=== PATIENT | female | born 1990 | race Caucasian/White ===

== ENCOUNTER 2017-04-12 19:44 | Emergency (ER) | payer OTHER ==
[~2017-04-12 19:44] MED LIST: BACT800T5 PO; LORA-392 PO; NAPR500 PO
--- NOTE | 2017-04-12 20:00 | PD ---
HPI Chief Complaint: VOL Time Seen by Provider: 19:58 Travel History International Travel<30 days: No Contact w/Intl Traveler<30days: No Traveled to known affect area: No History of Present Illness HPI 26-year-old female with history of bipolar disorder and anxiety presents to emergency department from [facility]. Patient went there requesting help with her anxiety. She denies suicidal or homicidal ideations. While there, the patient took a positive test. This apparently is out of [facility]'s scope of medical practice to handle so she was sent here. Patient states that she has anxiety. She would like to restart it on psychiatric meds to control her anxiety. Patient was seen and evaluated in the emergency department recently and prescribed 12 Ativan tablets, she is out of these. She is requesting refill. She has no other symptoms to report. PFSH Past Medical History Bipolar Disorder: Yes Anxiety: Yes Diminished Hearing: No Schizophrenia: Yes Past Surgical History Tonsillectomy: Yes Social History Alcohol Use: No Tobacco Use: Yes (04/09 ppd) Substance Use: No Allergies-Medications (Allergen,Severity, Reaction): Coded Allergies: No Known Allergies (Verified Adverse Reaction, Unknown, 03/21/17) Reported Meds & Prescriptions Reported Meds & Active Scripts Active Review of Systems Except as stated in HPI: all other systems reviewed are Neg Physical Exam Narrative GENERAL: Well-nourished female patient, in no acute distress. SKIN: Focused skin assessment warm/dry. HEAD: Atraumatic. Normocephalic. EYES: Pupils equal and round. No scleral icterus. No injection or drainage. ENT: No nasal bleeding or discharge. Mucous membranes pink and moist. NECK: Trachea midline. No JVD. CARDIOVASCULAR: Tachycardic rate and rhythm. No murmur appreciated. RESPIRATORY: No accessory muscle use. Clear to auscultation. Breath sounds equal bilaterally. GASTROINTESTINAL: Abdomen soft, non-tender, nondistended. Hepatic and splenic margins not palpable. MUSCULOSKELETAL: No obvious deformities. No clubbing. No cyanosis. No edema. NEUROLOGICAL: Awake and alert. No obvious cranial nerve deficits. Motor grossly within normal limits. Normal speech. Data Data Last Documented VS Vital Signs Date Time Temp Pulse Resp B/P (MAP) Pulse Ox O2 Delivery O2 Flow Rate FiO2 04/12/17 20:03 97.6 101 18 125/59 (81) 97 Orders Orders Ed Discharge Order (04/12/17 20:04) MDM Medical Decision Making Medical Screen Exam Complete: Yes Emergency Medical Condition: Yes Medical Record Reviewed: Yes Differential Diagnosis Medication refill versus mood disorder versus anxiety versus personality disorder Narrative Course 26-year-old female presents to emergency department requesting medication refill for her anxiety and to be started on antipsychotic medication for her bipolar. Patient denies suicidal or homicidal ideations. He states that [facility] told her we could help person she is . I reviewed with the patient that we are [facility] act receiving facility and if she does not want to harm herself or anybody else, she does not meet inpatient criteria and we will not be starting her on any antipsychotics because he will not be following up with her. She is provided information for [facility] and is advised to go there between walking hours tomorrow to establish care. She verbalizes understanding. She'll be discharged at this time. Diagnosis Primary Impression: Medication refill Additional Impression: Bipolar 1 disorder Referrals: [facility] Patient Instructions: Medicine Refill (ED) Additional Instructions: [facility] accepts walk-ins tomorrow 7 AM to 7 PM Please follow-up with them. They can assess and determine if you need additional psychiatric medication and follow you there Return immediately to emergency department with any acute worsening symptoms Med/Other Pt SpecificInfo: No Change to Meds Disposition: 01 DISCHARGE HOME Condition: Stable Jenny New Apr 12, 2017 20:00
[2017-04-12 20:03] VITALS: BP 125/59; PULSE 101; RESP 18; TEMP 97.6; O2SAT 97
== END 2017-04-12 20:24 | disposition home or self-care (01) ==
LOC: NEPD 19:44
DX: Z76.0 Encounter for issue of repeat prescription (principal); F31.9 Bipolar disorder, unspecified; F41.9 Anxiety disorder, unspecified; F20.9 Schizophrenia, unspecified; F17.200 Nicotine dependence, unspecified, uncomplicated
CPT/HCPCS: 99283

== ENCOUNTER 2017-04-13 19:58 | Inpatient (IN) | payer OTHER ==
[~2017-04-13] VITALS: Ht 157.5 cm; Wt 90.3 kg
--- NOTE | 2017-04-13 20:37 | PD ---
HPI Chief Complaint: BA Time Seen by Provider: 20:17 Travel History International Travel<30 days: No Contact w/Intl Traveler<30days: No Traveled to known affect area: No History of Present Illness HPI 26-year-old white female presents to emergency department under [place] act by PD. The patient initially had presented to [facility] voluntarily but verbalized suicidal ideation. PD were summoned. She was placed under [place] act. The patient is religiously preoccupied. She has a history of substance abuse, schizophrenia, bipolar and anxiety. The patient was seen one week ago here at [place] for anxiety. She was placed on a short course of Ativan. The patient followed up with [facility] last week and was notified she was . She was referred to the ER but she did not meet Nar[place] act criteria. The patient was to follow up as an outpatient but she did not until today and she appeared to be acutely delusional and suicidal. The patient here denies any homicidal ideation. She does admit to suicidal ideation. She denies any toxic ingestions. Patient did not appear to be aware that she was . She states that her last menstrual was 2 months ago. Patient is concerned that she may have hepatitis because she used IV drugs up until 2 months ago. Patient states that she is addicted to "ice". She snorts it. She stopped using IV ice 2 months ago. PFSH Past Medical History Narrative Medical Substance abuse, schizophrenia, bipolar, anxiety Bipolar Disorder: Yes Anxiety: Yes Diminished Hearing: No Schizophrenia: Yes Tetanus Vaccination: Unknown ?: LMP: 2 months ago : 5 Para: 4 Past Surgical History Surgical History: No Previous Surgery Tonsillectomy: Yes Social History Alcohol Use: Yes Tobacco Use: Yes (04/09 ppd) Substance Use: Yes Allergies-Medications (Allergen,Severity, Reaction): Coded Allergies: No Known Allergies (Verified Adverse Reaction, Unknown, 04/13/17) Reported Meds & Prescriptions Reported Meds & Active Scripts Active Review of Systems General / Constitutional: No: Fever Eyes: No: Visual changes HENT: No: Headaches Cardiovascular: No: Chest Pain or Discomfort Respiratory: No: Shortness of Breath Gastrointestinal: No: Abdominal Pain Genitourinary: No: Dysuria Musculoskeletal: No: Pain Skin: No Rash Neurologic: No: Weakness Psychiatric: Positive: Anxiety, Suicidal Ideations, Disorder of Thought, Mood Disorder, Substance Abuse, No: Depression, Homicidal Ideation Endocrine: No: Polydipsia Hematologic/Lymphatic: No: Easy Bruising Physical Exam Narrative GENERAL: Well-nourished, well-developed patient. SKIN: Warm and dry. HEAD: Normocephalic and atraumatic. EYES: No scleral icterus. No injection or drainage. ENT: No nasal drainage noted. Mucous membranes pink. Airway patent. NECK: Supple, trachea midline. Moves head freely without obvious discomfort. CARDIOVASCULAR: Regular rate and rhythm without murmurs, gallops, or rubs. RESPIRATORY: Breath sounds equal bilaterally. No accessory muscle use. GASTROINTESTINAL: Abdomen soft, non-tender, nondistended. EXTREMITIES: No cyanosis or edema. BACK: Nontender without obvious deformity. No CVA tenderness. NEURO: Patient is alert and oriented. no sensorimotor deficits. Nonfocal. Normal speech. PSYCH: The patient is acutely delusional. She is having auditory hallucinations. She states that she is hearing voices persecution and advising her to commit suicide. Data Data Last Documented VS Vital Signs Date Time Temp Pulse Resp B/P (MAP) Pulse Ox O2 Delivery O2 Flow Rate FiO2 04/13/17 20:40 98.1 65 18 130/72 (91) 99 Orders Orders Ed Urine Pregnancytest Poc (04/13/17 20:25) Complete Blood Count With Diff (04/13/17 20:25) Comprehensive Metabolic Panel (04/13/17 20:25) Thyroid Stimulating Hormone (04/13/17 20:25) Urinalysis - C+S If Indicated (04/13/17 20:25) Beta Hcg (Quant/Titer) (04/13/17 20:25) Psych Screen (04/13/17 20:25) Drug Screen, Random Urine (04/13/17 20:25) Alcohol (Ethanol) (04/13/17 20:25) Urine Culture (04/13/17 20:34) Cephalexin (Keflex) (04/13/17 22:45) Us Pelvis (Ques Preg/Ectopic) (04/13/17 22:41) Diet Regular Basic (04/14/17 Breakfast) Labs Laboratory Tests Test 04/13/17 20:34 White Blood Count 14.0 TH/MM3 Red Blood Count 4.70 MIL/MM3 Hemoglobin 13.0 GM/DL Hematocrit 39.3 % Mean Corpuscular Volume 83.7 FL Mean Corpuscular Hemoglobin 27.7 PG Mean Corpuscular Hemoglobin Concent 33.1 % Red Cell Distribution Width 16.3 % Platelet Count 316 TH/MM3 Mean Platelet Volume 8.2 FL Neutrophils (%) (Auto) 70.3 % Lymphocytes (%) (Auto) 23.5 % Monocytes (%) (Auto) 4.5 % Eosinophils (%) (Auto) 0.7 % Basophils (%) (Auto) 1.0 % Neutrophils # (Auto) 9.8 TH/MM3 Lymphocytes # (Auto) 3.3 TH/MM3 Monocytes # (Auto) 0.6 TH/MM3 Eosinophils # (Auto) 0.1 TH/MM3 Basophils # (Auto) 0.1 TH/MM3 CBC Comment DIFF FINAL Differential Comment Urine Color YELLOW Urine Turbidity CLOUDY Urine pH 6.0 Urine Specific [place] 1.028 Urine Protein 30 mg/dL Urine Glucose (UA) NEG mg/dL Urine Ketones 40 mg/dL Urine Occult Blood NEG Urine Nitrite NEG Urine Bilirubin NEG Urine Urobilinogen 2.0 MG/DL Urine Leukocyte Esterase LARGE Urine RBC 5 /hpf Urine WBC 28 /hpf Urine Squamous Epithelial Cells 15 /hpf Urine Bacteria OCC /hpf Urine Mucus MANY /lpf Microscopic Urinalysis Comment CULTURE INDICATED Blood Urea Nitrogen 9 MG/DL Creatinine 0.71 MG/DL Random Glucose 94 MG/DL Total Protein 8.7 GM/DL Albumin 3.8 GM/DL Calcium Level 8.7 MG/DL Alkaline Phosphatase 61 U/L Aspartate Amino Transf (AST/SGOT) 23 U/L Alanine Aminotransferase (ALT/SGPT) 36 U/L Total Bilirubin 0.5 MG/DL Sodium Level 136 MEQ/L Potassium Level 3.3 MEQ/L Chloride Level 104 MEQ/L Carbon Dioxide Level 22.3 MEQ/L Anion Gap 10 MEQ/L Estimat Glomerular Filtration Rate 99 ML/MIN Thyroid Stimulating Hormone 3rd Gen 1.630 uIU/ML Human Chorionic Gonadotropin, Quant 95426 MIU/ML Urine Opiates Screen NEG Urine Barbiturates Screen NEG Urine Amphetamines Screen POS Urine Benzodiazepines Screen NEG Urine Cocaine Screen NEG Urine Cannabinoids Screen NEG Ethyl Alcohol Level LESS THAN 3 MG/DL MDM Medical Decision Making Medical Screen Exam Complete: Yes Emergency Medical Condition: Yes Medical Record Reviewed: Yes Interpretation(s) Laboratory Tests Test 1/8/18 20:34 White Blood Count 14.0 TH/MM3 Red Blood Count 4.70 MIL/MM3 Hemoglobin 13.0 GM/DL Hematocrit 39.3 % Mean Corpuscular Volume 83.7 FL Mean Corpuscular Hemoglobin 27.7 PG Mean Corpuscular Hemoglobin Concent 33.1 % Red Cell Distribution Width 16.3 % Platelet Count 316 TH/MM3 Mean Platelet Volume 8.2 FL Neutrophils (%) (Auto) 70.3 % Lymphocytes (%) (Auto) 23.5 % Monocytes (%) (Auto) 4.5 % Eosinophils (%) (Auto) 0.7 % Basophils (%) (Auto) 1.0 % Neutrophils # (Auto) 9.8 TH/MM3 Lymphocytes # (Auto) 3.3 TH/MM3 Monocytes # (Auto) 0.6 TH/MM3 Eosinophils # (Auto) 0.1 TH/MM3 Basophils # (Auto) 0.1 TH/MM3 CBC Comment DIFF FINAL Differential Comment Urine Color YELLOW Urine Turbidity CLOUDY Urine pH 6.0 Urine Specific [place] 1.028 Urine Protein 30 mg/dL Urine Glucose (UA) NEG mg/dL Urine Ketones 40 mg/dL Urine Occult Blood NEG Urine Nitrite NEG Urine Bilirubin NEG Urine Urobilinogen 2.0 MG/DL Urine Leukocyte Esterase LARGE Urine RBC 5 /hpf Urine WBC 28 /hpf Urine Squamous Epithelial Cells 15 /hpf Urine Bacteria OCC /hpf Urine Mucus MANY /lpf Microscopic Urinalysis Comment CULTURE INDICATED Blood Urea Nitrogen 9 MG/DL Creatinine 0.71 MG/DL Random Glucose 94 MG/DL Total Protein 8.7 GM/DL Albumin 3.8 GM/DL Calcium Level 8.7 MG/DL Alkaline Phosphatase 61 U/L Aspartate Amino Transf (AST/SGOT) 23 U/L Alanine Aminotransferase (ALT/SGPT) 36 U/L Total Bilirubin 0.5 MG/DL Sodium Level 136 MEQ/L Potassium Level 3.3 MEQ/L Chloride Level 104 MEQ/L Carbon Dioxide Level 22.3 MEQ/L Anion Gap 10 MEQ/L Estimat Glomerular Filtration Rate 99 ML/MIN Thyroid Stimulating Hormone 3rd Gen 1.630 uIU/ML Human Chorionic Gonadotropin, Quant 58347 MIU/ML Urine Opiates Screen NEG Urine Barbiturates Screen NEG Urine Amphetamines Screen POS Urine Benzodiazepines Screen NEG Urine Cocaine Screen NEG Urine Cannabinoids Screen NEG Ethyl Alcohol Level LESS THAN 3 MG/DL Last 24 hours Impressions Pelvis Ultrasound 04/13/17 4511 Signed Impressions: Service Date/Time: Thursday, April 13, 2017 22:45 - CONCLUSION: 1. Intrauterine at 6 weeks one day Shyam Gregg MD Differential Diagnosis MDM: High Differential diagnoses: Schizophrenia, schizoaffective disorder, bipolar, anxiety, depression, adjustment reaction, mood disorder NOS, ODD, depressive disorder NOS, dementia, dementia with agitation, psychosis NOS, substance induced mood disorder, DMDD, Asperger syndrome, infection,electrolyte abnormality, malingering. Narrative Course Mental health screening discussed with the patient. Psychiatric screen ordered. Patient has a 6 week intrauterine . Her drug screen is positive for amphetamines. The patient has been medically cleared for psychiatric admission This is medical clearance for psychiatric admission, 6 week IUP, substance abuse Diagnosis Primary Impression: Medical clearance for psychiatric admission Additional Impressions: Qualified Codes: Z3A.01 - Less than 8 weeks gestation of Substance abuse Condition: Stable Jose Porter Apr 13, 2017 20:37
[2017-04-13 20:40] VITALS: BP 130/72; PULSE 65; RESP 18; TEMP 98.1; O2SAT 99
[2017-04-13 20:55] LABS: AUTOMATED NEUTROPHIL # 9.8 TH/MM3 (1.8-7.7); BASOPHIL # 0.1 TH/MM3 (0-0.2); EOSINOPHIL # 0.1 TH/MM3 (0-0.4); EOSINOPHIL % 0.7 % (0.0-4.0); HEMATOCRIT 39.3 % (35.0-46.0); LYMPH % 23.5 % (9.0-44.0); LYMPHOCYTE # 3.3 TH/MM3 (1.0-4.8); MEAN CELL VOLUME 83.7 FL (80.0-100.0); MEAN CORPUSCULAR HEMOGLOBIN 27.7 PG (27.0-34.0); MEAN CORPUSCULAR HGB CONC 33.1 % (32.0-36.0); MEAN PLATELET VOLUME 8.2 FL (7.0-11.0); MONO % 4.5 % (0.0-8.0); MONOCYTE # 0.6 TH/MM3 (0-0.9); NEUT % 70.3 % (16.0-70.0); PLATELET COUNT 316 TH/MM3 (150-450); RED CELL DISTRIBUTION WIDTH 16.3 % (11.6-17.2)
[2017-04-13 20:59] LABS: BACTERIA, URINE OCC /hpf; BILIRUBIN, URINE NEG (NEG); BLOOD, URINE NEG (NEG); GLUCOSE,URINE NEG (NEG); KETONE, URINE 40 mg/dL (NEG); MUCUS URINE MANY /lpf (OCC); NITRITE,URINE NEG (NEG); SQUAMOUS EPITHELIAL CELL URINE 15 /hpf (0-5); URINE COLOR YELLOW (YELLW/STRAW); URINE LEUKOCYTE ESTERASE LARGE (NEG)
[2017-04-13 21:19] LABS: ALBUMIN 3.8 GM/DL (3.4-5.0); AST (GOT) 23 U/L (15-37); BICARBONATE 22.3 MEQ/L (21.0-32.0); BLOOD UREA NITROGEN 9 MG/DL (7-18); CALCIUM 8.7 MG/DL (8.5-10.1); CHLORIDE 104 MEQ/L (98-107); CREATININE 0.71 MG/DL (0.50-1.00); GLOMERULAR FILTRATION RATE 99 ML/MIN (>89); GLUCOSE,RANDOM 94 MG/DL (74-106); SODIUM (NA) 136 MEQ/L (136-145)
[2017-04-13 21:20] LABS: ALT (GPT) 36 U/L (10-53)
[2017-04-13 21:29] LABS: ALKALINE PHOSPHATASE 61 U/L (45-117); TOTAL BILIRUBIN ADULT 0.5 MG/DL (0.2-1.0); TOTAL PROTEIN 8.7 GM/DL (6.4-8.2)
[2017-04-13] MEDS ORDERED: CEPHALEXIN MONOHYDRATE 500 MG CAP PO ONE (22:45)
--- NOTE | 2017-04-13 23:28 | RADRPT ---
EXAM DATE/TIME: 04/13/2017 22:45 [facility] COMPARISON: No previous studies available for comparison. INDICATIONS : dating. LAB(S): Beta-hC,094 MEDICAL HISTORY : . Substance use. Schizophrenia. Bipolar disorder. SURGICAL HISTORY : Tonsillectomy. ENCOUNTER: Initial ACUITY: 1 day PAIN SCORE: 0/10 LOCATION: Bilateral pelvis MEASUREMENTS: UTERUS: 10.4 x 5.7 x 6.8 cm ENDOMETRIAL STRIPE: >20 mm RIGHT OVARY: 3.0 x 1.7 x 1.6 cm LEFT OVARY: 2.9 x 2.5 x 2.9 cm FREE FLUID: No CROWN RUMP LENGTH: 0.43 cm = 6 WKS 1 DAYS FHR: 114 BPM FINDINGS: Ultrasound of the pelvis via transabdominal transvaginal approach demonstrates a single viable intrau terine with a crown-rump length of 4.3 mm corresponding to a 6 week one day gestation. Card iac activity is identified at 114 beats per minute. No free fluid or adnexal masses are identified. Examination of the right ovary demonstrates no abnormality. Examination of the left ovary demonstrates no abnormality with the exception of a 1.6 cm left ovarian cyst. CONCLUSION: 1. Intrauterine at 6 weeks one day Shyam Gregg MD on April 13, 2017 at 23:25 Board Certified Radiologist. This report was verified electronically.
[2017-04-14 03:28] VITALS: BP 118/55; PULSE 100; RESP 16; TEMP 98.6; O2SAT 98
[2017-04-14 07:10] VITALS: BP 148/69; PULSE 104; RESP 18; TEMP 98.6; O2SAT 97
[2017-04-14] MEDS ORDERED: ACETAMINOPHEN 325 MG TAB PO ONE (07:30)
[2017-04-14 10:00] VITALS: BP 113/72; PULSE 100; RESP 20; O2SAT 96
[2017-04-14] MEDS ORDERED: MAGNESIUM HYDROXIDE SUSP 30 ML CUP PO PRN (10:45)
[2017-04-14] MEDS ORDERED: ALUMINUM/MAGNESIUM/SIMETH 30 ML CUP PO PRN (10:45)
--- NOTE | 2017-04-14 11:11 | HHI.HP ---
Provisional Diagnosis Admission Date Apr 14, 2017 at 10:35 [place]. Adjustment disorder Certification of Person's Competence To Provide Express and Informed Consent I have personally examined Nanci Carrillo , a person being served at [facility] on, Apr 14, 2017 11:00. Express and informed consent means consent voluntarily given in writing, by a competent person, after sufficient explanation and disclosure of the subject matter involved to enable the person to make a knowing and willful decision without any element of force, fraud, deceit, duress, or other form of constraint or coercion. This person is 18 years of age or older, is not now known to be incompetent to consent to treatment with a guardian advocate, and does not have a health care surrogate or proxy currently making medical treatment decisions. I have found this person to be one of the following: [x] Competent to provide express and informed consent, as defined above, for voluntary admission to this facility and is competent to provide express and informed consent for treatment. He/she has the consistent capacity to make well reasoned, willful, and knowing decisions concerning his or her medical or mental health treatment. The person fully and consistently understands the purpose of the admission for examination/placement and is fully capable of personally exercising all rights [place] Incompetent to provide express and informed consent to voluntary admission, and this is incompetent to provide express and informed consent to treatment. The person must be transferred to involuntary status and a petition for a guardian advocate filed with the Circuit Court. [] Refusing to provide express and informed consent to voluntary admission but is competent to provide express and informed consent for treatment. The person must be discharged or transferred to involuntary status. Form shall be completed within 24 hours of a person's arrival at the receiving facility and filed in the clinical record of each person: 1. Admitted on a voluntary basis 2. Permitted to provide express and informed consent to his/her own treatment 3. Allowed to transfer from involuntary to voluntary status 4. Prior to permitting a person to consent to his or her own treatment after having been previously found incompetent to consent to treatment. History of Present Illness Capacity: Has Capacity HPI 26-year-old female resents under a [place] act initiated by Amos Aguirre after she went there claiming she was hearing voices which were telling her to harm herself. The patient is approximately 2 months and has a history of IV methamphetamine abuse. (Although the patient denies abuse in the last 2 months, her toxicology screen is positive for amphetamines.) The patient reported she had a plan to commit suicide by either jumping off a tall building or by slitting her wrists. She claims to have been diagnosed with schizophrenia , bipolar disorder and anxiety but stated she had not been taking her prescribed medication for the last 2 years. She told the deputy "I'm hearing the devil trying to tell me not to listen to Jorge". She also indicated at one point that she had been using methamphetamine for the last 6 months. Upon interview, the patient reports she has been using IV amphetamine for the last 6 years. She states the man with whom she got high is "not good for her". She is not claiming to be hearing voices at this time but does continue to report suicidal ideation. The patient's presentation is not consistent with someone who is truly schizophrenic as she spontaneously asks multiple questions about her and her situation. She has no flat affect. Her relatedness is not poor. She appears to be manipulative although still dangerous to herself and her unborn child. Review of Systems Psychiatric: COMPLAINS OF: Anxiety Except as stated in HPI: all other systems reviewed are Neg Past Psych History Psychological trauma history See history of present illness for patient's self-reported history. Violence risk - others (6 mos) Minimal Violence risk - self (6 mos) High Substance Abuse History Drugs/Alcohol past 12 months Self-admitted IV amphetamine abuse. Past Family Social History Coded Allergies: No Known Allergies (Verified Adverse Reaction, Unknown, 04/13/17) Discontinued Scripts Lorazepam (Ativan) 0.5 Mg Tab, 0.5 MG PO HS Y for ANXIETY AND/OR AGITATION, #12 TAB 0 Refills Prov:Jerzy Serrano MD 04/07/17 Naproxen (Naprosyn) 500 Mg Tab, 500 MG PO BID, #60 TAB 0 Refills Prov:Jerzy Serrano MD 03/21/17 Sulfamethoxazole-Trimethoprim (Bactrim DS) 800-160 Mg Tab, 1 TAB PO BID for Infection for 10 Days, #30 TAB 0 Refills Prov:Jerzy Serrano MD 03/21/17 Current Medications Medications (Trade) Dose Ordered Sig/David Route Start Time Stop Time Status Last Admin (Tylenol) 650 mg Q4H PRN PO 04/14/17 10:45 (Milk Of Magnesia Liq) 30 ml DAILY PRN PO 04/14/17 10:45 (Mag-Al Plus Susp Liq) 30 ml Q6H PRN PO 04/14/17 10:45 Family Psych History Reportedly positive for mood disorders. Social History Unemployed. No money. Currently homeless. Little or no family support. Obvious IV drug abuse. Patient's Strengths (min. 2) Verbal and has access to healthcare. Physical Exam GENERAL: SKIN: Warm and dry. HEAD: Normocephalic. EYES: No scleral icterus. No injection or drainage. NECK: Supple, trachea midline. No JVD or lymphadenopathy. CARDIOVASCULAR: Regular rate and rhythm without murmurs, gallops, or rubs. RESPIRATORY: Breath sounds equal bilaterally. No accessory muscle use. GASTROINTESTINAL: Abdomen soft, non-tender, nondistended. MUSCULOSKELETAL: No cyanosis, or edema. BACK: Nontender without obvious deformity. No CVA tenderness. Vital Signs Vital Signs Date Time Temp Pulse Resp B/P (MAP) Pulse Ox O2 Delivery O2 Flow Rate FiO2 04/14/17 10:00 100 20 113/72 (86) 96 04/14/17 07:10 98.6 Room Air Lab Results Test 04/13/17 20:34 White Blood Count 14.0 TH/MM3 Red Blood Count 4.70 MIL/MM3 Hemoglobin 13.0 GM/DL Hematocrit 39.3 % Mean Corpuscular Volume 83.7 FL Mean Corpuscular Hemoglobin 27.7 PG Mean Corpuscular Hemoglobin Concent 33.1 % Red Cell Distribution Width 16.3 % Platelet Count 316 TH/MM3 Mean Platelet Volume 8.2 FL Neutrophils (%) (Auto) 70.3 % Lymphocytes (%) (Auto) 23.5 % Monocytes (%) (Auto) 4.5 % Eosinophils (%) (Auto) 0.7 % Basophils (%) (Auto) 1.0 % Neutrophils # (Auto) 9.8 TH/MM3 Lymphocytes # (Auto) 3.3 TH/MM3 Monocytes # (Auto) 0.6 TH/MM3 Eosinophils # (Auto) 0.1 TH/MM3 Basophils # (Auto) 0.1 TH/MM3 CBC Comment DIFF FINAL Differential Comment Urine Color YELLOW Urine Turbidity CLOUDY Urine pH 6.0 Urine Specific Bath 1.028 Urine Protein 30 mg/dL Urine Glucose (UA) NEG mg/dL Urine Ketones 40 mg/dL Urine Occult Blood NEG Urine Nitrite NEG Urine Bilirubin NEG Urine Urobilinogen 2.0 MG/DL Urine Leukocyte Esterase LARGE Urine RBC 5 /hpf Urine WBC 28 /hpf Urine Squamous Epithelial Cells 15 /hpf Urine Bacteria OCC /hpf Urine Mucus MANY /lpf Microscopic Urinalysis Comment CULTURE INDICATED Blood Urea Nitrogen 9 MG/DL Creatinine 0.71 MG/DL Random Glucose 94 MG/DL Total Protein 8.7 GM/DL Albumin 3.8 GM/DL Calcium Level 8.7 MG/DL Alkaline Phosphatase 61 U/L Aspartate Amino Transf (AST/SGOT) 23 U/L Alanine Aminotransferase (ALT/SGPT) 36 U/L Total Bilirubin 0.5 MG/DL Sodium Level 136 MEQ/L Potassium Level 3.3 MEQ/L Chloride Level 104 MEQ/L Carbon Dioxide Level 22.3 MEQ/L Anion Gap 10 MEQ/L Estimat Glomerular Filtration Rate 99 ML/MIN Thyroid Stimulating Hormone 3rd Gen 1.630 uIU/ML Human Chorionic Gonadotropin, Quant 94739 MIU/ML Urine Opiates Screen NEG Urine Barbiturates Screen NEG Urine Amphetamines Screen POS Urine Benzodiazepines Screen NEG Urine Cocaine Screen NEG Urine Cannabinoids Screen NEG Ethyl Alcohol Level LESS THAN 3 MG/DL Date/Time Source Procedure Growth Status 04/13/17 20:34 Urine Clean Catch Urine Culture Pending Received Mental Status Examination Appearance: Disheveled Consciousness: Alert Orientation: x4 Motor Activity: Normal gait Speech: Unremarkable Language: Adequate Fund of Knowledge: Adequate Attention and Concentration: Adequate Memory: Unremarkable Mood: Anxious Affect: Anxious Thought Process & Associations: Intact Thought Content: Appropriate Hallucination Type: None Delusion Type: None Suicidal Ideation: Yes Suicidal Plan: Yes Suicidal Intention: No Homicidal Ideation: No Homicidal Plan: No Homicidal Intention: No Insight: Adequate Judgment: Adequate Assessment & Plan Problem List: (1) Adjustment disorder with mixed disturbance of emotions and conduct ICD Codes: F43.25 - Adjustment disorder with mixed disturbance of emotions and conduct (2) Amphetamine abuse ICD Codes: F15.10 - Other stimulant abuse, uncomplicated Assessment & Plan Estimated LOS: days. When a 6-year-old female approximately 2 weeks , complaining of hearing voices telling her to harm herself. Patient remains suicidal. She has been injecting herself with IV methamphetamine. She continues to have a plan to kill herself. This physician feels she is at high risk for self-harm and harm to her baby. She is therefore being admitted for further evaluation and treatment. This physician has ordered a CBC and comprehensive metabolic panel to determine if the patient has any infectious process or metabolic process which might be causing or contributing to her depression. Additionally, this physician has ordered thyroid stimulating hormone levels, vitamin B-12 levels and vitamin D levels to determine if deficiencies in these areas is causing or contributing to her depression. An EKG was also ordered to determine the patient's cardiac conduction status prior to initiating psychotropic medicines. A hep us consult was also ordered to evaluate the patient's physical health and . This case was discussed with the patient's nurse, Cali. Case management will also be involved to assist with further information gathering and disposition planning. Shane Alarcon MD Apr 14, 2017 11:11
[2017-04-14] MEDS: ACETAMINOPHEN 325 MG TAB PO PRN ×2 (13:45→21:05)
[2017-04-14 14:18] VITALS: BP 117/56; PULSE 99; RESP 16; TEMP 97.6; O2SAT 98
[2017-04-15 05:44] VITALS: BP 118/53; PULSE 92; RESP 16; TEMP 97.8
[2017-04-15] MEDS ORDERED: INFLUENZA VIRUS VACCINE (QUADRIVALENT) 0.5 ML SYR IM ONE (10:00)
[2017-04-15] MEDS ORDERED: POTASSIUM CHLORIDE 20 MEQ CONTROLLED RELEASE TAB PO ONE (12:00)
[2017-04-15 12:07] LABS: AUTOMATED NEUTROPHIL # 11.8 TH/MM3 (1.8-7.7); BASOPHIL # 0.1 TH/MM3 (0-0.2); BASOPHIL % 0.5 % (0.0-2.0); EOSINOPHIL # 0.1 TH/MM3 (0-0.4); EOSINOPHIL % 0.8 % (0.0-4.0); HEMATOCRIT 38.2 % (35.0-46.0); HEMOGLOBIN 12.9 GM/DL (11.6-15.3); LYMPH % 18.9 % (9.0-44.0); MEAN CELL VOLUME 83.7 FL (80.0-100.0); MEAN CORPUSCULAR HEMOGLOBIN 28.1 PG (27.0-34.0); MEAN CORPUSCULAR HGB CONC 33.6 % (32.0-36.0); MEAN PLATELET VOLUME 8.3 FL (7.0-11.0); MONO % 4.2 % (0.0-8.0); MONOCYTE # 0.7 TH/MM3 (0-0.9); NEUT % 75.6 % (16.0-70.0); PLATELET COUNT 343 TH/MM3 (150-450); RED BLOOD COUNT 4.57 MIL/MM3 (4.00-5.30); RED CELL DISTRIBUTION WIDTH 16.2 % (11.6-17.2); WHITE BLOOD COUNT 15.6 TH/MM3 (4.0-11.0)
[2017-04-15 12:31] LABS: ALBUMIN 3.9 GM/DL (3.4-5.0); AST (GOT) 17 U/L (15-37); BICARBONATE 24.4 MEQ/L (21.0-32.0); CHLORIDE 100 MEQ/L (98-107); CREATININE 0.61 MG/DL (0.50-1.00); GLOMERULAR FILTRATION RATE 118 ML/MIN (>89); SODIUM (NA) 134 MEQ/L (136-145)
[2017-04-15 12:34] LABS: BLOOD UREA NITROGEN 8 MG/DL (7-18); CHOLESTEROL 152 MG/DL (120-200); GLUCOSE,RANDOM 83 MG/DL (74-106)
[2017-04-15 13:03] LABS: ALKALINE PHOSPHATASE 61 U/L (45-117); ALT (GPT) 31 U/L (10-53); CHOLESTEROL/ HDL RATIO 3.61 RATIO; HDL CHOLESTEROL 42.1 MG/DL (40.0-60.0); LDL CHOLESTEROL 98 MG/DL (0-99); TOTAL BILIRUBIN ADULT 0.3 MG/DL (0.2-1.0); TOTAL PROTEIN 8.9 GM/DL (6.4-8.2); TRIGLYCERIDES 59 MG/DL (42-150)
--- NOTE | 2017-04-15 13:23 | PD.CONS ---
HPI Service [facility] Hospitalists Consult Requested By Dr. Alarcon Reason for Consult evaluation for patient's intrauterine Primary Care Physician Unknown Diagnoses: History of Present Illness 26-year-old white female who was recently admitted to inpatient psych unit from [facility] due to suicidal ideations presents with approximately 6 weeks intrauterine based on pelvic ultrasound. It is unknown if patient would provide accurate history as she allegedly states that this is her fifth and she's had for previous vaginal with 3 boys and one girl previously. There is no records that she's ever delivered here at [facility]. She states that she has not received care since the . She does admit to using IV amphetamines most recently 3 days ago. She states that she is using the drugs due to stress. She does not usually use it on a regular basis. She denies use of alcohol or tobacco at this time. She denies any abdominal pain or any vaginal bleeding or vaginal discharge at this time. She denies any dysuria or frequency or urgency. She has not had any chills or fevers. Review of Systems ROS Limitations: Clinical Condition Constitutional: DENIES: Fatigue, Fever, Chills, Change in appetite Endocrine: DENIES: Heat/cold intolerance Eyes: DENIES: Blurred vision, Eye pain, Vision loss Ears, nose, mouth, throat: DENIES: Hearing loss, Nasal discharge, Throat pain, Ear Pain, Sinus Pain Respiratory: DENIES: Cough, Shortness of breath Cardiovascular: DENIES: Chest pain, Palpitations, Dyspnea on Exertion, Lower Extremity Edema Gastrointestinal: DENIES: Abdominal pain, Black stools, Bloody stools, Constipation, Diarrhea, Nausea, Vomiting Genitourinary: DENIES: Abnormal vaginal bleeding, Urinary frequency, Urgency, Dysuria, Vaginal discharge Musculoskeletal: DENIES: Joint pain, Muscle aches, Stiffness Integumentary: DENIES: Rash Hematologic/lymphatic: DENIES: Bruising, Lymphadenopathy Immunologic/allergic: DENIES: Eczema Neurologic: DENIES: Headache, Localized weakness, Paresthesias Psychiatric: DENIES: Anxiety, Depression, Suicidal Ideation Past Family Social History Allergies: Coded Allergies: No Known Allergies (Verified Adverse Reaction, Unknown, 04/13/17) Past Medical History None per patient Allegedly she states this is a ; however unable to confirm . Past Surgical History None Reported Medications none Family History None per patient Social History Admitted amphetamine use, no alcohol or tobacco use Physical Exam Vital Signs Vital Signs Date Time Temp Pulse Resp B/P (MAP) Pulse Ox O2 Delivery O2 Flow Rate FiO2 04/15/17 05:44 97.8 92 16 118/53 (74) 04/14/17 14:18 97.6 99 16 117/56 (76) 98 Physical Exam GENERAL: This is a well-nourished, well-developed patient, in no apparent distress. SKIN: No rashes, ecchymoses or lesions. Cool and dry. HEAD: Atraumatic. Normocephalic. No temporal or scalp tenderness. EYES: Pupils equal round and reactive. Extraocular motions intact. No scleral icterus. No injection or drainage. ENT: Nose without bleeding, purulent drainage or septal hematoma. Throat without erythema, tonsillar hypertrophy or exudate. Uvula midline. Airway patent. NECK: Trachea midline. No JVD or lymphadenopathy. Supple, nontender, no meningeal signs. CARDIOVASCULAR: Regular rate and rhythm without murmurs, gallops, or rubs. RESPIRATORY: Clear to auscultation. Breath sounds equal bilaterally. No wheezes , rales, or rhonchi. GASTROINTESTINAL: Abdomen soft, non-tender, nondistended. No hepato-splenomegaly , or palpable masses. No guarding. MUSCULOSKELETAL: Extremities without clubbing, cyanosis, or edema. No joint tenderness, effusion, or edema noted. No calf tenderness. Negative Homans sign bilaterally. NEUROLOGICAL: Awake and alert. Cranial nerves II through XII intact. Motor and sensory grossly within normal limits. Five out of 5 muscle strength in all muscle groups. Normal speech. Laboratory Laboratory Tests Test 04/15/17 10:51 White Blood Count 15.6 Red Blood Count 4.57 Hemoglobin 12.9 Hematocrit 38.2 Mean Corpuscular Volume 83.7 Mean Corpuscular Hemoglobin 28.1 Mean Corpuscular Hemoglobin Concent 33.6 Red Cell Distribution Width 16.2 Platelet Count 343 Mean Platelet Volume 8.3 Neutrophils (%) (Auto) 75.6 Lymphocytes (%) (Auto) 18.9 Monocytes (%) (Auto) 4.2 Eosinophils (%) (Auto) 0.8 Basophils (%) (Auto) 0.5 Neutrophils # (Auto) 11.8 Lymphocytes # (Auto) 3.0 Monocytes # (Auto) 0.7 Eosinophils # (Auto) 0.1 Basophils # (Auto) 0.1 CBC Comment DIFF FINAL Differential Comment Blood Urea Nitrogen 8 Creatinine 0.61 Random Glucose 83 Total Protein 8.9 Albumin 3.9 Calcium Level 9.0 Alkaline Phosphatase 61 Aspartate Amino Transf (AST/SGOT) 17 Alanine Aminotransferase (ALT/SGPT) 31 Total Bilirubin 0.3 Sodium Level 134 Potassium Level 3.4 Chloride Level 100 Carbon Dioxide Level 24.4 Anion Gap 10 Estimat Glomerular Filtration Rate 118 Triglycerides Level 59 Cholesterol Level 152 LDL Cholesterol 98 HDL Cholesterol 42.1 Cholesterol/HDL Ratio 3.61 Vitamin B12 Level 803 25-Hydroxy Vitamin D Total 21.2 Thyroid Stimulating Hormone 3rd Gen 1.200 Date/Time Source Procedure Growth Status 04/13/17 20:34 Urine Clean Catch Urine Culture - Final 50-100,000 CFU/ML MIXED NOLAN... Complete Result Diagram: 04/15/17 1051 04/15/17 1051 Imaging Last Impressions Pelvis Ultrasound 04/13/17 2241 Signed Impressions: Service Date/Time: Thursday, April 13, 2017 22:45 - CONCLUSION: 1. Intrauterine at 6 weeks one day Shyam Gregg MD Assessment and Plan Problem List: (1) Adjustment disorder with mixed disturbance of emotions and conduct ICD Code: F43.25 - Adjustment disorder with mixed disturbance of emotions and conduct Status: Acute (2) ICD Code: Z34.90 - Encounter for supervision of normal , unspecified, unspecified trimester Status: Acute Assessment and Plan 1. Adjustment disorder with mixed disturbance of emotion white with previous suicidal ideations. At this time continue treatment per psychiatry. 2. Intrauterine approximately 6 weeks pelvic ultrasound. Patient does not seem to be the best historian allegedly states that this is her fifth . At this time I counseled the patient importance of drug cessation. I also counseled importance of following up to receive care. At this time was initiate vitamins and obtain routine labs. She will still need to follow-up with OB for more comprehensive evaluation, pelvic exam and GC cultures. 3. Asymptomatic UTI with urine cultures of mixed nolan of 50,000-100,000. Due to her , start Keflex 500 mg by mouth 3, 4. Amphetamine abuse- cessation counseling provided. Patient is medically clear for discharge and will need to follow-up with OB for continued care. Thank you for consultation. Problem Qualifiers (1) : Qualified Codes: Z3A.01 - Less than 8 weeks gestation of Shonna Weinstein MD Apr 15, 2017 13:23
[2017-04-15] MEDS: HALOPERIDOL 5 MG TAB PO SCH (14:00)
[2017-04-15 14:27] LABS: HEMOGLOBIN A1C 5.4 % (4.3-6.0)
--- NOTE | 2017-04-15 14:52 | PD.CONS ---
HPI Chief Complaint vaginal bleeding Date Seen: Apr 15, 2017 (Marcello Darling MD, R3) Travel History International Travel<30 Days: No Contact w/Intl Traveler<30Days: No Known Affected Area: No (Marcello Darling MD, R3) History of Present Illness HPI Ms. Carrillo is a 26 yo F who is being seen as a OBGYN consult due to reported vaginal bleeding during . Per discussion with psychiatry and psychiatry nursing staff, patient reported vaginal bleeding this morning to nursing staff. During HPI, patient had some conflicting statements; concern for accuracy of information. Ms. Carrillo reports that she had 4 prior vaginal deliveries ranging from 4- 12 years ago; patient reports that these were full term without complications. She regarding vaginal bleeding, patient states that she is not had any recently. Patient does not report any recent vaginal discharge, vaginal itching , or abdominal pain. Patient does not report headache, visual symptoms, chest pain, shortness of breath, abnormal urination, normal bowel movements. Patient reports some concern for hearing evil voices, patient also reports concerns regarding the safety of her children and the possibility of her having hepatitis due to prior IV drug use. Patient reports recent drug use, IV drug use, and occasional tobacco use. Patient does not report specific alcohol intake. Patient states that she plans disease illicit substances in tobacco due to safety regarding her current gestation. Patient denies taking any psychiatric medications at home but reports taking unspecified street drugs. Per EMR review: US 04/13/2017 showed intrauterine at 6 weeks 1 day. Toxicology + for amphetamines CBC- Hgb 13 UA- large leuk esterase, occ bacteria CMP wnl TSH wnl Weeks Gestation: 6 Para: 4 : 5 (Marcello Darling MD, R3) Remarks Additional history obtained with Dr. Wright: Patient reported that she initially mentioned vaginal bleeding to staff as an attempt to psychiatric unit (Mracello Darling MD, R3) History Past Medical History Narrative Medical IV drug use psychiatric disease (Marcello Darling MD, R3) Obstetric History Obstetric History *per patient (Marcello Darling MD, R3) Past Surgical History Surgical History: No Previous Surgery (Marcello Darling MD, R3) Family History Narrative Family History None reported (Marcello Darling MD, R3) Social History Narrative Social History unspecified tobacco abuse unspecified IV drug use amphetamines Home situation unclear Alcohol Use: No Tobacco Use: Yes Substance Abuse: Yes (Marcello Darling MD, R3) Allergies-Medications (Allergen,Severity, Reaction): Coded Allergies: No Known Allergies (Verified Adverse Reaction, Unknown, 04/13/17) Home Meds Active Scripts Vit-Iron Carbonyl ( Plus Iron 29-1 mg) 29 Mg Iron-1 Mg Tab, 1 TAB PO DAILY for health for 30 Days, #30 TAB Prov:Amaury Villegas MD 04/22/17 Haloperidol (Haloperidol) 10 Mg Tab, 10 MG PO BID for health for 30 Days, #60 TAB Prov:Amaury Villegas MD 04/22/17 Review of Systems ROS Limitations: Psychotic General / Constitutional: No: Fever, Chills Eyes: No: Blurred Vision HENT: No: Headaches Cardiovascular: No: Chest Pain or Discomfort Respiratory: No: Short of Breath Gastrointestinal: No: Nausea, Vomiting, Abdominal Pain Genitourinary: No: Urgency, Dysuria Skin: No Rash Psychiatric: Disorder of Thought, Substance Abuse (Marcello Darling MD, R3) Physical Exam Vital Signs Date Time Temp Pulse Resp B/P (MAP) Pulse Ox O2 Delivery O2 Flow Rate FiO2 04/15/17 05:44 97.8 92 16 118/53 (74) Narrative GENERAL: Patient appears comfortable, in no acute distress. SKIN: Warm and dry, no rashes appreciated EYES: No scleral icterus, injection, or drainage. NECK: No appreciated lymphadenopathy or thyromegaly CARDIOVASCULAR: Regular rate and rhythm without murmurs. Normal peripheral perfusion in lower extremities. RESPIRATORY: Normal respiratory rate. Lungs clear to auscultation bilaterally. GASTROINTESTINAL: Abdomen soft, nondistended, nontender. Bowel sounds normal. MUSCULOSKELETAL: No lower extremity swelling. No appreciated calf asymmetry. NEURO/PSYCH: Awake, alert, and oriented. Cranial nerves grossly normal. Grossly normal motor and sensory function. Patient reports auditory hallucinations Vaginal: External perivaginal area and labia appear normal. Some small quantity of whitish fluid in vagina; seemingly asymptomatic courtney. Cervix normal in appearance. No evidence of vaginal bleeding on speculum exam (Marcello Darling MD, R3) Data Data Orders Orders (Hub Use Only)In Phy Cons/Ref (04/14/17 ) Influenza (Quad) Vaccine Inj (Flu (Quadr (04/15/17 10:00) Physician Name Changes (04/15/17 ) Consult Obstetrics (04/15/17 ) (Hub Use Only)Inp Phy Cons/Ref (04/15/17 ) Potassium Chloride (Kcl) (04/15/17 12:00) Cephalexin (Keflex) (04/15/17 14:00) Dgygzibt-Zym-Ffuhf-Iron Prenat (Stuartna (04/16/17 09:00) Haloperidol (Haldol) (04/15/17 14:00) Consult Psychiatry (04/15/17 ) (Hub Use Only)Inp Phy Cons/Ref (04/15/17 ) Labs Laboratory Tests Test 04/15/17 10:51 White Blood Count 15.6 Red Blood Count 4.57 Hemoglobin 12.9 Hematocrit 38.2 Mean Corpuscular Volume 83.7 Mean Corpuscular Hemoglobin 28.1 Mean Corpuscular Hemoglobin Concent 33.6 Red Cell Distribution Width 16.2 Platelet Count 343 Mean Platelet Volume 8.3 Neutrophils (%) (Auto) 75.6 Lymphocytes (%) (Auto) 18.9 Monocytes (%) (Auto) 4.2 Eosinophils (%) (Auto) 0.8 Basophils (%) (Auto) 0.5 Neutrophils # (Auto) 11.8 Lymphocytes # (Auto) 3.0 Monocytes # (Auto) 0.7 Eosinophils # (Auto) 0.1 Basophils # (Auto) 0.1 CBC Comment DIFF FINAL Differential Comment Blood Urea Nitrogen 8 Creatinine 0.61 Random Glucose 83 Total Protein 8.9 Albumin 3.9 Calcium Level 9.0 Alkaline Phosphatase 61 Aspartate Amino Transf (AST/SGOT) 17 Alanine Aminotransferase (ALT/SGPT) 31 Total Bilirubin 0.3 Sodium Level 134 Potassium Level 3.4 Chloride Level 100 Carbon Dioxide Level 24.4 Anion Gap 10 Estimat Glomerular Filtration Rate 118 Triglycerides Level 59 Cholesterol Level 152 LDL Cholesterol 98 HDL Cholesterol 42.1 Cholesterol/HDL Ratio 3.61 Vitamin B12 Level 803 25-Hydroxy Vitamin D Total 21.2 Thyroid Stimulating Hormone 3rd Gen 1.200 Date/Time Source Procedure Growth Status 04/13/17 20:34 Urine Clean Catch Urine Culture - Final 50-100,000 CFU/ML MIXED ALVAREZ... Complete (Marcello Darling MD, R3) MDM Medical Record Reviewed: Yes Narrative Course / MDM 26 yo F who is being seen as a OBGYN consult due to reported vaginal bleeding during . Vaginal bleeding Impression: No evidence of bleeding on speculum exam. This seems consistent with patient giving supplemental history that she did not actually have bleeding. Normal IUP on US 04/13 -Nursing staff may notify department if additional concern exists IUP at 6 3/7 weeks -Will obtain remainder of panel due to concerns about IVDU and lack of guaranteed follow-up -Will plan for follow-up at [facility] after discharge (patient or staff can call [phone] for appointment) Substance abuse/hallucinations/psychiatric disease -Management per Psychiatry Seen with Dr. Wright Per discussion with psychiatry and psychiatry nursing staff, patient reported vaginal bleeding this morning to nursing staff. During HPI, patient had some conflicting statements; concern for accuracy of information. Ms. Carrillo reports that she had 4 prior vaginal deliveries ranging from 4- 12 years ago; patient reports that these were full term without complications. She regarding vaginal bleeding, patient states that she is not had any recently. Patient does not report any recent vaginal discharge, vaginal itching , or abdominal pain. Patient does not report headache, visual symptoms, chest pain, shortness of breath, abnormal urination, normal bowel movements. Patient reports some concern for hearing evil voices, patient also reports concerns regarding the safety of her children and the possibility of her having hepatitis due to prior IV drug use. Patient reports recent drug use, IV drug use, and occasional tobacco use. Patient does not report specific alcohol intake. Patient states that she plans disease illicit substances in tobacco due to safety regarding her current gestation. Patient denies taking any psychiatric medications at home but reports taking unspecified street drugs. Per EMR review: US 04/13/2017 showed intrauterine at 6 weeks 1 day. Toxicology + for amphetamines CBC- Hgb 13 UA- large leuk esterase, occ bacteria CMP wnl TSH wnl Admitting diagnosis: Adjustment Disorder (Marcello Darling MD, R3) Attending Attestation The patient was seen and examined with the resident and I participated in all magana decision making. The patient now denies any vagina bleeding and states she was hoping that she would be sent to ED and discharged home. Thank you for consult, please call with any questions or if further assistance is needed. (Brea Wright MD) Condition: Stable Scripts Vit-Iron Carbonyl ( Plus Iron 29-1 mg) 29 Mg Iron-1 Mg Tab 1 TAB PO DAILY for health for 30 Days, #30 TAB Prov: Amaury Villegas MD 04/22/17 Haloperidol (Haloperidol) 10 Mg Tab 10 MG PO BID for health for 30 Days, #60 TAB Prov: Amaury Villegas MD 04/22/17 Marcello Darling MD, R3 Apr 15, 2017 14:52 Brea Wright MD Apr 22, 2017 15:05
--- NOTE | 2017-04-15 17:04 | HHI.PYPN ---
Subjective Remarks Patient is a 26-year-old woman, has 3 children who does not live with her, domiciled with father, unemployed, with a past psychiatric history of self- reported schizophrenia, bipolar and anxiety, previous psychiatric admissions, previous suicide attempts (last time being 2-3 years ago), significant polysubstance use disorder including methamphetamines, alcohol, amphetamines, and currently 6 weeks intrauterine , who was brought in under Narvaez act by police after having gone to [facility] voluntarily and had endorsed suicidal ideations along with latter day preoccupation in the context of recent amphetamine use. Patient was seen for follow-up, chart reviewed patient was noted to be disorganized, responding to internal stimuli, noted to be interacting with auditory hallucinations, noted to have stop blocking and stating that she continues to hear voices of the devil telling her to worshiped him over Jorge along with stating that she hears her children on the roof. Patient states that "the devil won't be was alone and is trying to hurt them ( children) indices in [facility]". Patient states that she wants to be old to stop her drug use and get clean states the last use of illegal drugs was 2-3 days ago. Patient mentions that the auditory hallucinations worsen when she is using illegal substances and get better when she stops. Patient also states that they are command auditory hallucinations telling her to kill other people, denies any visual hallucinations, reports paranoid ideations of the devil coming after her. Review of Systems Except as stated in HPI: all other systems reviewed are Neg Mental Status Examination Appearance: Disheveled, Malodorous Consciousness: Lethargic Orientation: x4 Motor Activity: Normal gait Speech: Unremarkable Language: Adequate Fund of Knowledge: Inadequate Attention and Concentration: Easily Distracted Memory: Unremarkable Mood: Anxious Affect: Labile, Anxious Thought Process & Associations: Disorganized Thought Content: Bizarre thinking, Hallucinations, Delusional Hallucination Type: Auditory, Other (command auditory hallucinations) Delusion Type: Bizarre, Paranoid, Other (latter day) Suicidal Ideation: Yes Suicidal Plan: Yes Suicidal Intention: No Homicidal Ideation: No Homicidal Plan: No Homicidal Intention: No Insight: Adequate Judgment: Adequate Results Labs Labs reviewed Test 04/15/17 10:51 White Blood Count 15.6 TH/MM3 Red Blood Count 4.57 MIL/MM3 Hemoglobin 12.9 GM/DL Hematocrit 38.2 % Mean Corpuscular Volume 83.7 FL Mean Corpuscular Hemoglobin 28.1 PG Mean Corpuscular Hemoglobin Concent 33.6 % Red Cell Distribution Width 16.2 % Platelet Count 343 TH/MM3 Mean Platelet Volume 8.3 FL Neutrophils (%) (Auto) 75.6 % Lymphocytes (%) (Auto) 18.9 % Monocytes (%) (Auto) 4.2 % Eosinophils (%) (Auto) 0.8 % Basophils (%) (Auto) 0.5 % Neutrophils # (Auto) 11.8 TH/MM3 Lymphocytes # (Auto) 3.0 TH/MM3 Monocytes # (Auto) 0.7 TH/MM3 Eosinophils # (Auto) 0.1 TH/MM3 Basophils # (Auto) 0.1 TH/MM3 CBC Comment DIFF FINAL Differential Comment Blood Urea Nitrogen 8 MG/DL Creatinine 0.61 MG/DL Random Glucose 83 MG/DL Total Protein 8.9 GM/DL Albumin 3.9 GM/DL Calcium Level 9.0 MG/DL Alkaline Phosphatase 61 U/L Aspartate Amino Transf (AST/SGOT) 17 U/L Alanine Aminotransferase (ALT/SGPT) 31 U/L Total Bilirubin 0.3 MG/DL Sodium Level 134 MEQ/L Potassium Level 3.4 MEQ/L Chloride Level 100 MEQ/L Carbon Dioxide Level 24.4 MEQ/L Anion Gap 10 MEQ/L Estimat Glomerular Filtration Rate 118 ML/MIN Hemoglobin A1c 5.4 % Triglycerides Level 59 MG/DL Cholesterol Level 152 MG/DL LDL Cholesterol 98 MG/DL HDL Cholesterol 42.1 MG/DL Cholesterol/HDL Ratio 3.61 RATIO Vitamin B12 Level 803 PG/ML 25-Hydroxy Vitamin D Total 21.2 ng/ML Thyroid Stimulating Hormone 3rd Gen 1.200 uIU/ML Date/Time Source Procedure Growth Status 04/13/17 20:34 Urine Clean Catch Urine Culture - Final 50-100,000 CFU/ML MIXED ALVAREZ... Complete Vitals/IOs Vital Signs Date Time Temp Pulse Resp B/P (MAP) Pulse Ox O2 Delivery O2 Flow Rate FiO2 04/15/17 05:44 97.8 92 16 118/53 (74) 04/14/17 14:18 98 04/14/17 07:10 Room Air Assessment & Plan Problem List: (1) Adjustment disorder with mixed disturbance of emotions and conduct ICD Codes: F43.25 - Adjustment disorder with mixed disturbance of emotions and conduct Status: Acute (2) Amphetamine abuse ICD Codes: F15.10 - Other stimulant abuse, uncomplicated Assessment & Plan Patient is a 26-year-old woman who carries a diagnoses of polysubstance use disorder, self reported history of schizophrenia bipolar and anxiety, previous hospitalizations, previous suicide attempts was brought in under Narvaez act noted to be psychotic along with endorsing suicidal ideations in the context of being 6 weeks . Patient at this time due to active psychotic symptoms telling her to kill others as well as latter day delusions, paranoia and disorganization, will start Haldol 5 mg by mouth daily for psychosis as at this time the benefits outweigh the risks and safety for patient as well as the well-being of her unborn child is at risk due to current psychosis. OB consult requested along with hospitalist consult. Recommendations as per primary medical team. Continue to monitor mood and behavior. Collateral patient pending. Discharge planning in progress Justification for Cont. Inpt. At risk for further decompensation if at lower level of care Discharge Planning To be determined Amaury Villegas MD Apr 15, 2017 17:04
[2017-04-15 18:24] VITALS: BP 123/70; PULSE 95; RESP 16; TEMP 97.3; O2SAT 98
[2017-04-15] MEDS: CEPHALEXIN MONOHYDRATE 500 MG CAP PO SCH (22:00)
[2017-04-16] MEDS: CEPHALEXIN MONOHYDRATE 500 MG CAP PO SCH ×3 (05:55→21:42)
[2017-04-16 06:07] VITALS: BP 118/68; PULSE 94; RESP 18; TEMP 98; O2SAT 96
[2017-04-16] MEDS: MULTIVIT/MIN/PREN/FOL AC/IRON PRENATAL TAB PO SCH (09:20)
[2017-04-16] MEDS: HALOPERIDOL 5 MG TAB PO SCH ×2 (09:20→20:23)
[2017-04-16 11:10] LABS: HEPATITIS A AB IGM NEGATIVE (NEGATIVE); HEPATITIS B CORE AB IGM NEGATIVE (NEGATIVE); HEPATITIS B SURFACE ANTIGEN NEGATIVE (NEGATIVE); HEPATITIS C AB IgG REACTIVE (NEGATIVE)
--- NOTE | 2017-04-16 13:27 | PD.PSY.CON ---
Provisional Diagnosis Admission Date Apr 14, 2017 at 10:35 Arrey I. Adjustment disorder History of Present Illness Service Psychiatry Consult Requested By Dr. Villegas Reason for Consult Second opinion Primary Care Physician Unknown HPI 26-year-old female resents under a Narvaez act initiated by Amos Aguirre after she went there claiming she was hearing voices which were telling her to harm herself. The patient is approximately 2 months and has a history of IV methamphetamine abuse. (Although the patient denies abuse in the last 2 months, her toxicology screen is positive for amphetamines.) The patient reported she had a plan to commit suicide by either jumping off a tall building or by slitting her wrists. She claims to have been diagnosed with schizophrenia , bipolar disorder and anxiety but stated she had not been taking her prescribed medication for the last 2 years. She told the deputy "I'm hearing the devil trying to tell me not to listen to Jorge". She also indicated at one point that she had been using methamphetamine for the last 6 months. Upon interview, the patient reports she has been using IV amphetamine for the last 6 years. She states the man with whom she got high is "not good for her". She is not claiming to be hearing voices at this time but does continue to report suicidal ideation. The patient's presentation is not consistent with someone who is truly schizophrenic as she spontaneously asks multiple questions about her and her situation. She has no flat affect. Her relatedness is not poor. She appears to be manipulative although still dangerous to herself and her unborn child. 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 On psychiatric evaluation patient is calm, cooperative, but very disorganized, internally stimulated, laughing inappropriately, but redirectable. Patient says that she has been talking to Jorge directly for about 2 weeks. She says that right now Jorge was showing her a light. The patient becomes very tangential, disorganized, she reports that she has been hearing evil voices, which she does not describe the content. The patient is fully oriented 3, no agitation or aggressive behavior reported. Review of Systems Constitutional: DENIES: Diaphoretic episodes, Fatigue, Fever, Weight gain, Weight loss, Chills, Dizziness, Change in appetite, Night Sweats Endocrine: DENIES: Abnorml menstrual pattern, Heat/cold intolerance, Polydipsia , Polyuria, Polyphagia Eyes: DENIES: Blurred vision, Diplopia, Eye inflammation, Eye pain, Vision loss , Photosensitivity, Double Vision Ears, nose, mouth, throat: DENIES: Tinnitus, Hearing loss, Vertigo, Nasal discharge, Oral lesions, Throat pain, Hoarseness, Ear Pain, Running Nose, Epistaxis, Sinus Pain, Toothache, Odynophagia Respiratory: DENIES: Apneas, Cough, Snoring, Wheezing, Hemoptysis, Sputum production, Shortness of breath Cardiovascular: DENIES: Chest pain, Palpitations, Syncope, Dyspnea on Exertion , PND, Lower Extremity Edema, Orthopnea, Claudication Genitourinary: DENIES: Abnormal vaginal bleeding, Dysmenorrhea, Dyspareunia, Sexual dysfunction, Urinary frequency, Urinary incontinence, Urgency, Hematuria , Dysuria, Nocturia, Vaginal discharge Musculoskeletal: DENIES: Joint pain, Muscle aches, Stiffness, Joint Swelling, Back pain, Neck pain Integumentary: DENIES: Abnormal pigmentation, Pruritus, Rash, Nail changes, Breast masses, Breast skin changes, Nipple discharge Hematologic/lymphatic: DENIES: Bruising, Lymphadenopathy Immunologic/allergic: DENIES: Eczema, Urticaria Neurologic: DENIES: Abnormal gait, Headache, Localized weakness, Paresthesias, Seizures, Speech Problems, Tremor, Poor Balance Psychiatric: DENIES: Anxiety, Confusion, Mood changes, Depression, Hallucinations, Agitation, Suicidal Ideation, Homicidal Ideation, Delusions Past Family Social History Coded Allergies: No Known Allergies (Verified Adverse Reaction, Unknown, 04/13/17) Discontinued Scripts Lorazepam (Ativan) 0.5 Mg Tab, 0.5 MG PO HS Y for ANXIETY AND/OR AGITATION, #12 TAB 0 Refills Prov:Jerzy Serrano MD 04/07/17 Naproxen (Naprosyn) 500 Mg Tab, 500 MG PO BID, #60 TAB 0 Refills Prov:Jerzy Serrano MD 03/21/17 Sulfamethoxazole-Trimethoprim (Bactrim DS) 800-160 Mg Tab, 1 TAB PO BID for Infection for 10 Days, #30 TAB 0 Refills Prov:Jerzy Serrano MD 03/21/17 Current Medications Medications (Trade) Dose Ordered Sig/David Route Start Time Stop Time Status Last Admin (Tylenol) 650 mg Q4H PRN PO 04/14/17 10:45 04/14/17 21:05 (Milk Of Magnesia Liq) 30 ml DAILY PRN PO 04/14/17 10:45 (Mag-Al Plus Susp Liq) 30 ml Q6H PRN PO 04/14/17 10:45 (Keflex) 500 mg Q8HR PO 04/15/17 14:00 04/18/17 13:59 04/16/17 05:55 (Stuartnatal Plus 3 ) 1 tab DAILY PO 04/16/17 09:00 04/16/17 09:20 (Haldol) 5 mg BID PO 04/16/17 21:00 Family Psych History She denies family psychiatric history Social History She was born and raised in [place], she lives in [place] with best friend, unemployed, single, her highest level of education is sixth-grade Patient's Strengths (min. 2) Verbal and has access to healthcare. Physical Exam Vital Signs Vital Signs Date Time Temp Pulse Resp B/P (MAP) Pulse Ox O2 Delivery O2 Flow Rate FiO2 04/16/17 06:07 98.0 94 18 118/68 (85) 96 04/14/17 07:10 Room Air Lab Results Test 04/15/17 17:38 Rapid Plasma Reagin NON-REACTIVE Rubella Immunity Screen IMMUNE Rubella Antibody, Quantitative 181.0 IU/mL Date/Time Source Procedure Growth Status 04/13/17 20:34 Urine Clean Catch Urine Culture - Final 50-100,000 CFU/ML MIXED ALVAREZ... Complete Mental Status Examination Appearance: Disheveled, Malodorous Consciousness: Lethargic Orientation: x4 Motor Activity: Normal gait Speech: Unremarkable Language: Adequate Fund of Knowledge: Inadequate Attention and Concentration: Easily Distracted Memory: Unremarkable Mood: Anxious Affect: Labile, Anxious Thought Process & Associations: Disorganized Thought Content: Bizarre thinking, Hallucinations, Delusional Hallucination Type: Auditory, Other (command auditory hallucinations) Delusion Type: Bizarre, Paranoid, Other (gnosticism) Suicidal Ideation: Yes Suicidal Plan: Yes Suicidal Intention: No Homicidal Ideation: No Homicidal Plan: No Homicidal Intention: No Insight: Adequate Judgment: Adequate Assessment & Plan Problem List: (1) Adjustment disorder with mixed disturbance of emotions and conduct ICD Codes: F43.25 - Adjustment disorder with mixed disturbance of emotions and conduct Status: Acute (2) Amphetamine abuse ICD Codes: F15.10 - Other stimulant abuse, uncomplicated Assessment & Plan: I have seen and examined this patient, reviewed documentation, discussed the case with Dr. Villegas, I agree and concur with this assessment and plan. Assessment & Plan Estimated LOS: Russ Barnes MD Apr 16, 2017 13:27
--- NOTE | 2017-04-16 16:01 | EKG ---
Date Performed: 04/15/2017 Time Performed: 12:20:43 PTAGE: 26 years EKG: Sinus rhythm WITH MARKED SINUS ARRHYTHMIA BORDERLINE ECG NO PREVIOUS TRACING DOCTOR: Shena Rush Interpretating Date/Time 04/16/2017 16:00:09
--- NOTE | 2017-04-16 18:22 | HHI.PYPN ---
Subjective Remarks Patient seen for follow-up, chart reviewed. Discussion with nursing staff reported that the patient feels devil is after her, responding to internal stimuli. Patient was found at nurses station stating that the medication is not working, noted to be internally preoccupied and responding to internal stimuli. Patient states taht she showered today, denies any vaginal bleeding and admits to having lied about the vaginal bleeding yesterday because she wanted to leave the hospital. She reports having slept well but continues with command AH telling her to "go against Jorge" and commanding her to confucianism the devil. Review of Systems Except as stated in HPI: all other systems reviewed are Neg Mental Status Examination Appearance: Disheveled Consciousness: Lethargic Orientation: x4 Motor Activity: Normal gait Speech: Unremarkable Language: Adequate Fund of Knowledge: Inadequate Attention and Concentration: Easily Distracted Memory: Unremarkable Mood: Anxious Affect: Labile, Anxious Thought Process & Associations: Disorganized Thought Content: Bizarre thinking, Hallucinations, Delusional Hallucination Type: Auditory, Other (command auditory hallucinations) Delusion Type: Bizarre, Paranoid, Other (presybeterian) Suicidal Ideation: Yes Suicidal Plan: Yes Suicidal Intention: No Homicidal Ideation: No Homicidal Plan: No Homicidal Intention: No Insight: Adequate Judgment: Adequate Results Labs labs reviewed Date/Time Source Procedure Growth Status 04/13/17 20:34 Urine Clean Catch Urine Culture - Final 50-100,000 CFU/ML MIXED ALVAREZ... Complete Vitals/IOs Vital Signs Date Time Temp Pulse Resp B/P (MAP) Pulse Ox O2 Delivery O2 Flow Rate FiO2 04/16/17 06:07 98.0 94 18 118/68 (85) 96 04/14/17 07:10 Room Air Assessment & Plan Problem List: (1) Adjustment disorder with mixed disturbance of emotions and conduct ICD Codes: F43.25 - Adjustment disorder with mixed disturbance of emotions and conduct Status: Acute (2) Amphetamine abuse ICD Codes: F15.10 - Other stimulant abuse, uncomplicated Assessment & Plan Patient continues to be psychotic, endorsing command AH along with presybeterian and persecutory delusions. Will increase haldol to 5mg PO BID, continue rest of medications and vitamins. Continnue recommendations as per primary medical team. Discharge planning in progress. Justification for Cont. Inpt. At risk for further decompensation if at lower level of care. Amaury Villegas MD Apr 16, 2017 18:22
[2017-04-16 18:26] VITALS: PULSE 92; RESP 18; TEMP 98.2; O2SAT 99
[2017-04-17 06:00] VITALS: BP 117/55; PULSE 80; RESP 18; TEMP 98.1
[2017-04-17] MEDS: CEPHALEXIN MONOHYDRATE 500 MG CAP PO SCH ×3 (06:23→21:08)
[2017-04-17] MEDS: MULTIVIT/MIN/PREN/FOL AC/IRON PRENATAL TAB PO SCH (09:31)
[2017-04-17] MEDS: HALOPERIDOL 5 MG TAB PO SCH (09:31)
--- NOTE | 2017-04-17 17:11 | HHI.PYPN ---
Subjective Remarks Patient seen for follow-up, chart reviewed. Discussion with nursing reported that patient continues with AH and restoration delusions. Patient was found in day room, noted to be internally preoccupied. She is noted to have significant thought blocking during interview with long periods of staring and disorganized. Patient continues to endorse AH along with restoration delusions. She states feeling "great" and having slept well. Patient noted to respond to internal stimuli. Review of Systems Except as stated in HPI: all other systems reviewed are Neg Mental Status Examination Appearance: Appropriate Consciousness: Lethargic Orientation: x4 Motor Activity: Normal gait Speech: Unremarkable Language: Adequate Fund of Knowledge: Inadequate Attention and Concentration: Easily Distracted Memory: Unremarkable Mood: Other ("great") Affect: Flat Thought Process & Associations: Disorganized Thought Content: Bizarre thinking, Hallucinations, Thought blocking, Delusional Hallucination Type: Auditory, Other (command auditory hallucinations) Delusion Type: Bizarre, Paranoid, Other (restoration) Suicidal Ideation: Yes Suicidal Plan: Yes Suicidal Intention: No Homicidal Ideation: No Homicidal Plan: No Homicidal Intention: No Insight: Adequate Judgment: Adequate Results Labs labs reviewed Test 04/17/17 13:15 Date/Time Source Procedure Growth Status 04/13/17 20:34 Urine Clean Catch Urine Culture - Final 50-100,000 CFU/ML MIXED ALVAREZ... Complete Vitals/IOs Vital Signs Date Time Temp Pulse Resp B/P (MAP) Pulse Ox O2 Delivery O2 Flow Rate FiO2 04/17/17 06:00 98.1 80 18 117/55 (75) 04/16/17 18:26 99 04/14/17 07:10 Room Air Intake and Output 04/17/17 04/17/17 04/18/17 08:00 16:00 00:00 Intake Total 480 ml Balance 480 ml Assessment & Plan Problem List: (1) Adjustment disorder with mixed disturbance of emotions and conduct ICD Codes: F43.25 - Adjustment disorder with mixed disturbance of emotions and conduct Status: Acute (2) Amphetamine abuse ICD Codes: F15.10 - Other stimulant abuse, uncomplicated Assessment & Plan Patient continues to be psychotic with AH, paranoid and restoration delusions. Will increase haldol to 5mg AM/ 10mg HS for psychosis. Continue rest of medications. Discharge on progress. Justification for Cont. Inpt. At risk for further decompensation if at lower level of care. Discharge Planning To be determined Amaury Villegas MD Apr 17, 2017 17:11
[2017-04-17 18:57] VITALS: BP 121/60; PULSE 101; RESP 18; TEMP 98.1; O2SAT 97
[2017-04-17] MEDS: HALOPERIDOL 10 MG TAB PO SCH (21:08)
[2017-04-17] MEDS: diphenhydrAMINE HCL 50 MG CAP PO PRN (21:38)
[2017-04-18 05:11] VITALS: BP 112/56; PULSE 90; RESP 16; TEMP 98.6; O2SAT 96
[2017-04-18] MEDS: CEPHALEXIN MONOHYDRATE 500 MG CAP PO SCH (05:24)
[2017-04-18] MEDS: HALOPERIDOL 5 MG TAB PO SCH (10:46)
[2017-04-18] MEDS: MULTIVIT/MIN/PREN/FOL AC/IRON PRENATAL TAB PO SCH (10:46)
--- NOTE | 2017-04-18 16:03 | HHI.PYPN ---
Subjective Remarks Pt seen and discussed with staff. She continues to exhibit bizarre behavior and reports hearing the voices of angels. She is religiously preoccupied. She is somewhat less fixated on delusions today. She has spent most of the day in bed. She is malodourous. No SI/HI Mental Status Examination Appearance: Appropriate Consciousness: Lethargic Orientation: x4 Motor Activity: Normal gait Speech: Unremarkable Language: Adequate Fund of Knowledge: Inadequate Attention and Concentration: Easily Distracted Memory: Unremarkable Mood: Other ("great") Affect: Flat Thought Process & Associations: Disorganized Thought Content: Bizarre thinking, Hallucinations, Thought blocking, Delusional Hallucination Type: Auditory, Other (command auditory hallucinations) Delusion Type: Bizarre, Paranoid, Other (worship) Suicidal Ideation: Yes Suicidal Plan: Yes Suicidal Intention: No Homicidal Ideation: No Homicidal Plan: No Homicidal Intention: No Insight: Adequate Judgment: Adequate Results Labs Date/Time Source Procedure Growth Status 04/13/17 20:34 Urine Clean Catch Urine Culture - Final 50-100,000 CFU/ML MIXED ALVAREZ... Complete Vitals/IOs Vital Signs Date Time Temp Pulse Resp B/P (MAP) Pulse Ox O2 Delivery O2 Flow Rate FiO2 04/18/17 05:11 98.6 90 16 112/56 (74) 96 04/14/17 07:10 Room Air Assessment & Plan Problem List: (1) Psychosis ICD Codes: F29 - Unspecified psychosis not due to a substance or known physiological condition (2) Adjustment disorder with mixed disturbance of emotions and conduct ICD Codes: F43.25 - Adjustment disorder with mixed disturbance of emotions and conduct Status: Acute (3) Amphetamine abuse ICD Codes: F15.10 - Other stimulant abuse, uncomplicated Assessment & Plan Continue current tx plan. Estimated LOS: days Justification for Cont. Inpt. risk of decompensation Shaina Stapleton MD Apr 18, 2017 16:03
[2017-04-18 18:39] VITALS: BP 118/64; PULSE 88; RESP 18; TEMP 98.2; O2SAT 97
[2017-04-18] MEDS: HALOPERIDOL 10 MG TAB PO SCH (22:08)
[2017-04-18] MEDS: diphenhydrAMINE HCL 50 MG CAP PO PRN (22:09)
[2017-04-19 05:45] VITALS: BP 103/57; PULSE 85; RESP 16; TEMP 98.9; O2SAT 98
[2017-04-19] MEDS: HALOPERIDOL 5 MG TAB PO SCH (10:39)
[2017-04-19] MEDS: MULTIVIT/MIN/PREN/FOL AC/IRON PRENATAL TAB PO SCH (10:39)
--- NOTE | 2017-04-19 13:58 | HHI.PYPN ---
Subjective Remarks Pt seen and discussed with staff. She has remained in bed all morning. She remains malodorous with poor hygiene. She is fixated on discharge but has not expressed any delusional or bizarre ideations. She denies AH today. Mental Status Examination Appearance: Disheveled Consciousness: Lethargic Orientation: x4 Motor Activity: Normal gait Speech: Unremarkable Language: Adequate Fund of Knowledge: Inadequate Attention and Concentration: Easily Distracted Memory: Unremarkable Mood: Other ("great") Affect: Flat Thought Process & Associations: Disorganized Thought Content: Appropriate Hallucination Type: Other (command auditory hallucinations) Delusion Type: Other (religion) Suicidal Ideation: No Suicidal Plan: No Suicidal Intention: No Homicidal Ideation: No Homicidal Plan: No Homicidal Intention: No Insight: Adequate Judgment: Adequate Results Labs Date/Time Source Procedure Growth Status 04/13/17 20:34 Urine Clean Catch Urine Culture - Final 50-100,000 CFU/ML MIXED ALVAREZ... Complete Vitals/IOs Vital Signs Date Time Temp Pulse Resp B/P (MAP) Pulse Ox O2 Delivery O2 Flow Rate FiO2 04/19/17 05:45 98.9 85 16 103/57 (72) 98 Intake and Output 04/19/17 04/19/17 04/20/17 08:00 16:00 00:00 Intake Total 0 ml 240 ml Balance 0 ml 240 ml Assessment & Plan Problem List: (1) Psychosis ICD Codes: F29 - Unspecified psychosis not due to a substance or known physiological condition (2) Adjustment disorder with mixed disturbance of emotions and conduct ICD Codes: F43.25 - Adjustment disorder with mixed disturbance of emotions and conduct Status: Acute (3) Amphetamine abuse ICD Codes: F15.10 - Other stimulant abuse, uncomplicated Assessment & Plan Pt improving. Continue current tx plan. Estimated LOS: days Justification for Cont. Inpt. risk of decompensation Shaina Stapleton MD Apr 19, 2017 13:58
[2017-04-19 17:28] VITALS: BP 135/60; PULSE 90; RESP 16; TEMP 98; O2SAT 97
[2017-04-19] MEDS: diphenhydrAMINE HCL 50 MG CAP PO PRN (20:25)
[2017-04-19] MEDS: ACETAMINOPHEN 325 MG TAB PO PRN (20:25)
[2017-04-19] MEDS: HALOPERIDOL 10 MG TAB PO SCH (20:26)
[2017-04-20 01:00] VITALS: BP 117/56; PULSE 65; RESP 16; TEMP 98.2; O2SAT 98
[2017-04-20 02:18] VITALS: BP 115/54; PULSE 58; RESP 16; TEMP 98; O2SAT 98
[2017-04-20 05:43] VITALS: BP 106/60; PULSE 96; RESP 18; TEMP 98.3; O2SAT 96
[2017-04-20] MEDS: MULTIVIT/MIN/PREN/FOL AC/IRON PRENATAL TAB PO SCH (09:36)
[2017-04-20] MEDS: HALOPERIDOL 5 MG TAB PO SCH (09:37)
[2017-04-20 09:38] VITALS: BP 132/62; PULSE 87; RESP 16; TEMP 98.4; O2SAT 95
[2017-04-20 13:55] VITALS: BP 136/70; PULSE 102; RESP 18; TEMP 98.2; O2SAT 97
--- NOTE | 2017-04-20 16:02 | RADRPT ---
EXAM DATE/TIME: 04/20/2017 08:45 [facility] COMPARISON: No previous studies available for comparison. INDICATIONS : Spotting for 1 day. LAB(S): [id number] MEDICAL HISTORY : Head trauma. HTN. Numbness. Schizophrenia. Bipolar disorder. Substance use. SURGICAL HISTORY : Tonsillectomy. ENCOUNTER: Initial ACUITY: 1 day PAIN SCORE: 0/10 LOCATION: Bilateral pelvis MEASUREMENTS: UTERUS: 11.3 x 6.0 x 7.5 cm ENDOMETRIAL STRIPE: >20 mm RIGHT OVARY: 2.6 x 1.8 x 2.1 cm LEFT OVARY: 3.3 x 2.3 x 2.2 cm FREE FLUID: No CROWN RUMP LENGTH: 1.02 cm = 7 WKS 1 DAYS FHR: 165 BPM FINDINGS: UTERUS: Intrauterine gestation is present with estimated gestational age of 7 weeks one days 2 days. ca rdiac activity is detected at 165 beats per minute. A small hypoechoic collection adjacent to the ges tational sac may be submembranous hemorrhage. RIGHT OVARY: Ovary contains no mass or significant cystic lesion. LEFT OVARY: Small cystic mass, likely corpus luteum. MISCELLANEOUS: No free fluid. CONCLUSION: 7 week intrauterine gestation with possible small subchorionic hemorrhage. Jerzy Servin MD on April 20, 2017 at 15:55 Board Certified Radiologist. This report was verified electronically.
--- NOTE | 2017-04-20 16:55 | HHI.PYPN ---
Subjective Remarks Patient seen for follow-up, chart review. Discussion she staff reported the patient yesterday to herself on the floor and nursing had suspicion the patient was med seeking. Patient missed breakfast this morning but had lunch. Patient was found lying in hospital bed, cooperative. Patient states that she is feeling "better" and reports having had a good weekend and was visited by her boyfriend. Patient also states that she was visited by her best friends animal he plans to stay with upon discharge. Patient states that she continues to have auditory hallucinations but states that they're going away and intensity are 5 out of 10 (10 is its worst), patient states that she would like to shave and shower. Patient states her mood is "alright" denies any SI or HI, continues with some jain delusions and reporting voices telling her to worsen Lucifer and that Jorge which are ego-dystonic Review of Systems Except as stated in HPI: all other systems reviewed are Neg Mental Status Examination Appearance: Disheveled Consciousness: Alert Orientation: x4 Motor Activity: Normal gait Speech: Unremarkable Language: Adequate Fund of Knowledge: Inadequate Attention and Concentration: Easily Distracted Memory: Unremarkable Mood: Appropriate Affect: Flat Thought Process & Associations: Linear Thought Content: Thought blocking (slightly) Hallucination Type: Auditory, Other (command auditory hallucinations) Delusion Type: Other (jain) Suicidal Ideation: No Suicidal Plan: No Suicidal Intention: No Homicidal Ideation: No Homicidal Plan: No Homicidal Intention: No Insight: Adequate Judgment: Adequate Results Labs Labs reviewed Test 04/20/17 10:40 Human Chorionic Gonadotropin, Quant [id number] MIU/ML Date/Time Source Procedure Growth Status 04/13/17 20:34 Urine Clean Catch Urine Culture - Final 50-100,000 CFU/ML MIXED ALVAREZ... Complete Vitals/IOs Vital Signs Date Time Temp Pulse Resp B/P (MAP) Pulse Ox O2 Delivery O2 Flow Rate FiO2 04/20/17 09:38 98.4 87 16 132/62 (85) 95 Assessment & Plan Problem List: (1) Psychosis ICD Codes: F29 - Unspecified psychosis not due to a substance or known physiological condition (2) Adjustment disorder with mixed disturbance of emotions and conduct ICD Codes: F43.25 - Adjustment disorder with mixed disturbance of emotions and conduct Status: Acute (3) Amphetamine abuse ICD Codes: F15.10 - Other stimulant abuse, uncomplicated Assessment & Plan At this time continues to with persistent psychosis she has religiously preoccupied as well as continues endorse auditory hallucinations but are decreasing intensity. Increase haloperidol to 10 mg by mouth twice a day for psychosis. Continue with the medications. We'll put in order to have patient be allowed to shave. Continue to encourage patient to maintain personal hygiene. Discharge planning in progress Justification for Cont. Inpt. At risk for further decompensation if at lower level of care Discharge Planning Discharged to her friend's house residence upon psychiatric stabilization Amaury Villegas MD Apr 20, 2017 16:55
[2017-04-20] MEDS: NICOTINE 14 MG/24 HR PATCH T-DERMAL SCH (17:53)
[2017-04-20 18:00] VITALS: BP 116/72; PULSE 100; RESP 18; TEMP 98.6; O2SAT 96
[2017-04-20] MEDS: HALOPERIDOL 10 MG TAB PO SCH (20:57)
[2017-04-21] MEDS: ACETAMINOPHEN 325 MG TAB PO PRN ×2 (05:09→12:39)
[2017-04-21 05:45] VITALS: BP 113/50; PULSE 93; RESP 16; TEMP 98.3; O2SAT 97
[2017-04-21 08:37] VITALS: BP 113/50; PULSE 93; RESP 16; TEMP 98.3; O2SAT 97
[2017-04-21] MEDS: HALOPERIDOL 10 MG TAB PO SCH ×2 (08:41→20:57)
[2017-04-21] MEDS: MULTIVIT/MIN/PREN/FOL AC/IRON PRENATAL TAB PO SCH (08:41)
[2017-04-21] MEDS: NICOTINE 14 MG/24 HR PATCH T-DERMAL SCH (08:41)
[2017-04-21] MEDS: REMOVE OLD PATCH T-DERMAL SCH (08:41)
--- NOTE | 2017-04-21 14:34 | HHI.PYPN ---
Subjective Remarks Patient seen for follow-up, chart reviewed. Discussion she staff reported the patient has been visible on the unit, slept well. Patient found sitting in hospital bed, cooperative. Patient states that she is feeling "good" and reports having slept well stated that she no longer has been expressing auditory hallucinations since last night. Patient noted to have more organized thought process and the longer noted to have speech latency or thought blocking during interview. Patient states that upon discharge plans on continuing her follow-up engage in [employer] and will be staying with her friend. Review of Systems Except as stated in HPI: all other systems reviewed are Neg Mental Status Examination Appearance: Appropriate Consciousness: Alert Orientation: x4 Motor Activity: Normal gait Speech: Unremarkable Language: Adequate Fund of Knowledge: Inadequate Attention and Concentration: Easily Distracted Memory: Unremarkable Mood: Appropriate Affect: Flat Thought Process & Associations: Goal directed, Linear Thought Content: Appropriate Hallucination Type: Auditory (denies), Other (command auditory hallucinations) Delusion Type: Other (evangelical) Suicidal Ideation: No Suicidal Plan: No Suicidal Intention: No Homicidal Ideation: No Homicidal Plan: No Homicidal Intention: No Insight: Adequate Judgment: Adequate Results Labs Labs reviewed Date/Time Source Procedure Growth Status 04/13/17 20:34 Urine Clean Catch Urine Culture - Final 50-100,000 CFU/ML MIXED ALVAREZ... Complete Vitals/IOs Vital Signs Date Time Temp Pulse Resp B/P (MAP) Pulse Ox O2 Delivery O2 Flow Rate FiO2 04/21/17 08:37 98.3 93 16 113/50 (71) 97 Intake and Output 04/21/17 04/21/17 04/22/17 08:00 16:00 00:00 Intake Total 480 ml Balance 480 ml Assessment & Plan Problem List: (1) Psychosis ICD Codes: F29 - Unspecified psychosis not due to a substance or known physiological condition (2) Adjustment disorder with mixed disturbance of emotions and conduct ICD Codes: F43.25 - Adjustment disorder with mixed disturbance of emotions and conduct Status: Acute (3) Amphetamine abuse ICD Codes: F15.10 - Other stimulant abuse, uncomplicated Assessment & Plan Should this time noted to have more organized thought processes during interview , no longer noted to be internally preoccupied or having thought blocking and denying any auditory hallucinations. Patient tolerating treatment well. Continue current treatment. Patient possible discharge tomorrow. Discharge planning in progress Justification for Cont. Inpt. At risk for further decompensation if at lower level of care Discharge Planning Patient to be discharged to her friend Anamika's home Amaury Villegas MD Apr 21, 2017 14:34
[2017-04-21 17:59] VITALS: BP 134/59; PULSE 98; RESP 18; TEMP 98.3; O2SAT 97
[2017-04-21] MEDS: diphenhydrAMINE HCL 50 MG CAP PO PRN (21:01)
[2017-04-22 06:39] VITALS: BP 112/56; PULSE 85; RESP 18; TEMP 98.2; O2SAT 99
[2017-04-22 07:06] VITALS: BP 112/56; PULSE 85; RESP 18; TEMP 98.2; O2SAT 99
[2017-04-22] MEDS: NICOTINE 14 MG/24 HR PATCH T-DERMAL SCH (08:39)
[2017-04-22] MEDS: MULTIVIT/MIN/PREN/FOL AC/IRON PRENATAL TAB PO SCH (08:39)
[2017-04-22] MEDS: HALOPERIDOL 10 MG TAB PO SCH (08:39)
[2017-04-22] MEDS: REMOVE OLD PATCH T-DERMAL SCH (08:41)
[2017-04-22] MEDS ORDERED: HALO10TA PO (11:18)
[2017-04-22] MEDS ORDERED: PREN29TA PO (11:18)
[2017-04-22 11:52] LABS: HCV RNA PCR IU/ML LESS THAN 15 IU/mL (0-14)
--- NOTE | 2017-04-22 19:44 | HHI.DS ---
Psychiatry Discharge Summary Inpatient Psychiatric care?: Yes Advance Directive: No Reason Not Provided: education material provided Mental Health AdvanceDirective: No Health Care Proxy: No Admission Admission Date Apr 14, 2017 at 10:35 Admission Diagnosis: (1) Psychosis ICD Code: F29 - Unspecified psychosis not due to a substance or known physiological condition (2) Substance abuse ICD Code: F19.10 - Other psychoactive substance abuse, uncomplicated Brief History 26-year-old female resents under a [place] act initiated by Amos Aguirre after she went there claiming she was hearing voices which were telling her to harm herself. The patient is approximately 2 months and has a history of IV methamphetamine abuse. (Although the patient denies abuse in the last 2 months, her toxicology screen is positive for amphetamines.) The patient reported she had a plan to commit suicide by either jumping off a tall building or by slitting her wrists. She claims to have been diagnosed with schizophrenia , bipolar disorder and anxiety but stated she had not been taking her prescribed medication for the last 2 years. She told the deputy "I'm hearing the devil trying to tell me not to listen to Jorge". She also indicated at one point that she had been using methamphetamine for the last 6 months. Upon interview, the patient reports she has been using IV amphetamine for the last 6 years. She states the man with whom she got high is "not good for her". She is not claiming to be hearing voices at this time but does continue to report suicidal ideation. The patient's presentation is not consistent with someone who is truly schizophrenic as she spontaneously asks multiple questions about her and her situation. She has no flat affect. Her relatedness is not poor. She appears to be manipulative although still dangerous to herself and her unborn child. 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 On psychiatric evaluation patient is calm, cooperative, but very disorganized, internally stimulated, laughing inappropriately, but redirectable. Patient says that she has been talking to Jorge directly for about 2 weeks. She says that right now Jorge was showing her a light. The patient becomes very tangential, disorganized, she reports that she has been hearing evil voices, which she does not describe the content. The patient is fully oriented 3, no agitation or aggressive behavior reported. Tobacco Use In Past 30 Days: 5 or More Cigarettes/Day Alcohol Use: 2-4 Times Per Month Hospital Course Patient is a 26-year-old woman, has 3 children who does not live with her, domiciled with father, unemployed, with a past psychiatric history of self- reported schizophrenia, bipolar and anxiety, previous psychiatric admissions, previous suicide attempts (last time being 2-3 years ago), significant polysubstance use disorder including methamphetamines, alcohol, amphetamines, and currently 6 weeks intrauterine , who was brought in under [place] act by police after having gone to [facility] voluntarily and had endorsed suicidal ideations along with rastafarian preoccupation in the context of recent amphetamine use and transferred to the inpatient psychiatry unit for further evaluation and management. Patient restarted on haloperidol and titrated up to 10mg PO BID for psychosis. Due to active psychotic symptoms telling her to kill others as well as rastafarian delusions, paranoia and disorganization, Haldol was started for psychosis as the benefits outweigh the risks and safety for patient as well as the well-being of her unborn child due to current psychosis. OB consult along with hospitalist consult were requested and followed patient during hospitalization. Patient was treated for asymptomatic UTI with Keflex and had ultrasounds with no abnormal findings. Patient was noted to have progressive improvement of mood, cessation of auditory hallucinations, and compliant with treatment. Patient was cooperative with staff, had no behavioral dyscontrol, and participated in groups and activities. Upon discharge patient stated that she was feeling good, denied any psychotic symptoms, denied any SI, HI or delusions. Patient agreed to continue medication regimen and outpatient follow up for continuity of care. Patient was counseled on importance of abstinence from substance use. I have counseled the patient regarding warning signs for need to return to the psychiatric emergency room as part of a general safety plan. Patient advised to call 911 or go nearest ED in case of emergency. Patient agrees with plan. Results Blood Pressure 112 / 56 Vital Signs Date Time Temp Pulse Resp B/P (MAP) Pulse Ox O2 Delivery O2 Flow Rate FiO2 04/22/17 07:06 98.2 85 18 112/56 (74) 99 Laboratory Tests Test 1/15/18 10:40 Human Chorionic Gonadotropin, Quant [id number] MIU/ML (0-5) Laboratory Results Test 04/15/17 10:51 Cholesterol Level 152 MG/DL (120-200) HDL Cholesterol 42.1 MG/DL (40.0-60.0) Hemoglobin A1c 5.4 % (4.3-6.0) LDL Cholesterol 98 MG/DL (0-99) Triglycerides Level 59 MG/DL (42-150) Summary of Procedures None Imaging Last Impressions Pelvis Ultrasound 04/20/17 0000 Signed Impressions: Service Date/Time: Thursday, April 20, 2017 08:45 - CONCLUSION: 7 week intrauterine gestation with possible small subchorionic hemorrhage. Jerzy Servin MD Pending results at discharge: No Medications # of Antipsychotic meds at D/C: 1 Approp Antipsych med options 1 - Minimum of three failed multiple trials of monotherapy. 2 - Documented plan to taper to monotherapy due to previous use of multiple meds OR cross-taper in progress at D/C. 3 - Documentation of augmentation of Clozapine. 4 - Justification other than those listed in allowable values 1-3, document here : Discharge Discharge Date: Apr 22, 2017 Discharge Diagnosis: (1) Psychosis ICD Code: F29 - Unspecified psychosis not due to a substance or known physiological condition (2) Substance abuse ICD Code: F19.10 - Other psychoactive substance abuse, uncomplicated Status: Acute Pt Condition on Discharge: Stable Discharge Disposition: Discharge Home Discharge Instructions Diet Instructions: Diet Activities you can perform: Regular-No Restrictions Scheduled Appointment: Mariano Dennison Appointment Date: Apr 21, 2017 Appointment Time: 730am Discharge Time > 30 minutes Mental Status Examination Appearance: Appropriate Consciousness: Alert Orientation: x4 Motor Activity: Normal gait Speech: Unremarkable Language: Adequate Fund of Knowledge: Inadequate Attention and Concentration: Easily Distracted Memory: Unremarkable Mood: Appropriate Affect: Appropriate Thought Process & Associations: Goal directed, Linear Thought Content: Appropriate Hallucination Type: None, Other Delusion Type: None Suicidal Ideation: No Suicidal Plan: No Suicidal Intention: No Homicidal Ideation: No Homicidal Plan: No Homicidal Intention: No Insight: Adequate Judgment: Adequate Discharge/Advance Care Plan Health Problems: (1) Psychosis (2) Adjustment disorder with mixed disturbance of emotions and conduct (3) Amphetamine abuse Goals to promote your health * To prevent worsening of your condition and complications * To maintain your health at the optimal level Directions to meet your goals Take your medications as prescribed Follow your dietary instruction Follow activity as directed Keep your appointments as scheduled Take your immunizations and boosters as scheduled If your symptoms worsen call your PCP, if no PCP go to Urgent Care Center or Emergency Room For 27/10 questions related to your inpatient stay or results of tests pending at discharge, please contact Dr. Amaury Villegas at Smoking is Dangerous to Your Health. Avoid second hand smoking Amaury Villegas MD Apr 22, 2017 19:44
== END 2017-04-22 14:20 | disposition home or self-care (01) | DRG 781 ==
LOC: NEPD 19:58 → NEDA 04-14 10:35 → H260 04-14 12:10
PROVIDERS: ADMIT Student in an Organized Health Care Education/Training Program; ATTEND Student in an Organized Health Care Education/Training Program
DX: O99.341 Other mental disorders complicating pregnancy, first trimester (principal); R45.851 Suicidal ideations; O98.811 Other maternal infectious and parasitic diseases complicating pregnancy, first trimester; O23.41 Unspecified infection of urinary tract in pregnancy, first trimester; B37.3 Candidiasis of vulva and vagina; O99.321 Drug use complicating pregnancy, first trimester; F20.9 Schizophrenia, unspecified; F41.9 Anxiety disorder, unspecified; F31.9 Bipolar disorder, unspecified; O99.331 Smoking (tobacco) complicating pregnancy, first trimester; F43.25 Adjustment disorder with mixed disturbance of emotions and conduct; F15.10 Other stimulant abuse, uncomplicated; Z3A.01 Less than 8 weeks gestation of pregnancy; Z59.0 Homelessness; Z91.5 Personal history of self-harm
CPT/HCPCS: 76700; 80053; 80061; 80074; 80307; 81001; 82306; 82607; 83036; 84443; 84702; 84703; 85025; 86592; 86703; 86762; 86850; 86900; 86901; 87086; 87522; 87902; 93005; 99283; 99285; Q0163